=== PATIENT | female | born 1980 | race Caucasian/White ===

== ENCOUNTER → 2017-01-14 | Outpatient (CLI) | payer OTHER ==
[2017-01-15 15:40] LABS: Crab IgE <0.35 kU/L (<0.35); Crab IgE Class CLASS 0; Lettuce IgE Class CLASS 0
[2017-01-15 15:41] LABS: Beef IgE <0.35 kU/L (<0.35); Beef IgE Class CLASS 0; Onion IgE <0.35 kU/L (<0.35); Onion IgE Class CLASS 0; Pork IgE Class CLASS 0; Salmon IgE <0.35 kU/L (<0.35); Salmon IgE Class CLASS 0
[2017-01-15 15:42] LABS: Egg Yolk IgE Class CLASS 0; Gluten IgE Class CLASS 0; Lobster IgE <0.35 kU/L (<0.35); Lobster IgE Class CLASS 0; Oat IgE Class CLASS 0; Yeast Bakers/Brew IgE <0.35 kU/L (<0.35); Yeast Bakers/Brew IgE Class CLASS 0
[2017-01-15 15:43] LABS: Alternaria alternata IgE <0.35 kU/L (<0.35); Asperg. fumagatus IgE <0.35 kU/L (<0.35); Asperg. fumagatus IgE Class CLASS 0; Aureo. pullulans IgE <0.35 kU/L (<0.35); Avocado Class CLASS 0; Banana IgE Class CLASS 0; Birch(Com.Silvr) IgE Class CLASS 0; Candida albicans IgE Class CLASS 0; Celery IgE <0.35 kU/L (<0.35); Celery IgE Class CLASS 0; Chicken IgE Class CLASS 0; Chocolate IgE Class CLASS 0; Clad herbarum IgE <0.35 kU/L (<0.35); Clad herbarum IgE Class CLASS 0; Cow's Milk IgE Class CLASS 0; Egg White IgE <0.35 kU/L (<0.35); Epicoccum purpurascens Class CLASS 0; Epicoccum purpurascens IgE <0.35 kU/L (<0.35); Hazelnut IgE <0.35 kU/L (<0.35); Hazelnut IgE Class CLASS 0; Kiwi IgE <0.35 kU/L (<0.35); Kiwi IgE Class CLASS 0; Maple (Box Elder) IgE <0.35 kU/L (<0.35); Maple (Box Elder) IgE Class CLASS 0; Mucor racemosus IgE <0.35 kU/L (<0.35); Mucor racemosus IgE Class CLASS 0; Oak IgE <0.35 kU/L (<0.35); Peanut IgE <0.35 kU/L (<0.35); Potato IgE <0.35 kU/L (<0.35); Potato IgE Class CLASS 0; Rhizopus nigricans IgE <0.35 kU/L (<0.35); Rhizopus nigricans IgE Class CLASS 0; S.rostrata/Helminth Class CLASS 0; S.rostrata/Helminth IgE <0.35 kU/L (<0.35); Soybean IgE <0.35 kU/L (<0.35); Sycamore(Mpl.Lf) IgE <0.35 kU/L (<0.35); Sycamore(Mpl.Lf) IgE Class CLASS 0; Walnut Tree IgE <0.35 kU/L (<0.35); White Ash IgE Class CLASS 0
[2017-01-15 15:44] LABS: Cat Epith & Dander IgE <0.35 kU/L (<0.35); Cat Epith & Dander IgE Class CLASS 0; Coffee IgE <0.35 kU/L (<0.35); Coffee IgE Class CLASS 0; Com. Pigweed IgE <0.35 kU/L (<0.35); Com. Pigweed IgE Class CLASS 0; Common Ragweed IgE Class CLASS 0; Dermato. Pteronyssinus Class CLASS 0; Dermato. Pteronyssinus IgE <0.35 kU/L (<0.35); Dermato. farinae IgE <0.35 kU/L (<0.35); Dermato. farinae IgE Class CLASS 0; English Plantain IgE Class CLASS 0; Johnson Grass IgE Class CLASS 0; Lamb's Quarter IgE <0.35 kU/L (<0.35); Lamb's Quarter IgE Class CLASS 0; Tea IgE <0.35 kU/L (<0.35); Tea IgE Class CLASS 0; Timothy Grass IgE <0.35 kU/L (<0.35); Timothy Grass IgE Class CLASS 0
== END | disposition home or self-care (01) ==
LOC: LABWHC1 09:38
PROVIDERS: ATTEND Otolaryngology
DX: J30.89 Other allergic rhinitis (principal)
CPT/HCPCS: 36415; 86003